=== PATIENT | female | born 1970 | race Caucasian/White ===

== ENCOUNTER 2016-12-01 22:12 | Emergency (ER) | payer OTHER ==
--- NOTE | ~2016-12-01 | CR210 ---
[facility]. [facility] A Service of [facility] & [facility] RADIOLOGY TEXT RESULTS PATIENT: KALEB AYALA LOCATION: SED : 68 UNIT #: [id number] AGE: [address]: BROCK SALMON SEX: F ORDER DR: [id number] [address] [address] [id number] E MR#: [id number] Acc #: [id number] NAME: KALEB AYALA : 1970 SEX: F STUDY DATE/TIME: 12/01/2016 21:50 UNIT: SED ROOM: STUDY DESCRIPTION: CR Ribs Uni 2 View W PA Ch Lt Attending Physician: Brock Salmon Ordering Physician: Felix Cruz M.D. Primary Care Physician: Thad Rich M.D. MEDICAL IMAGING REPORT This report is preliminary unless electronic signature is present. EXAM Left ribs with AP chest HISTORY Fall, fell down steps at home 6 days ago with continued pain. FINDINGS AP view of the chest is obtained as well as an additional 5 views of the left ribs. Chest radiograph is normal. Bony elements are intact. No fractures are seen. There is no evidence of pneumothorax or pleural fluid. CONCLUSION Negative chest and left ribs Dictated by... Felix Swan M.D. THIS IS AN ELECTRONICALLY VERIFIED REPORT Felix Swan M.D. at 12/05/2016 5:10 PM JONATHON/dwayne TD: 12/02/2016 09:33 JOB #: [id number] MEDICAL IMAGING REPORT
[~2016-12-01 22:12] MED LIST: MOBIC PO; SERTRALINE HCL100 MG PO
== END 2016-12-01 22:51 | disposition home or self-care (01) ==
LOC: SED 22:12
DX: S29.9XXA Unspecified injury of thorax, initial encounter (principal); J06.9 Acute upper respiratory infection, unspecified; I10 Essential (primary) hypertension; F17.210 Nicotine dependence, cigarettes, uncomplicated; F32.9 Major depressive disorder, single episode, unspecified
CPT/HCPCS: 71100; 87651; 96372; 99283; J1885; J2360